=== PATIENT | female | born 2000 | race Caucasian/White ===

== ENCOUNTER 2019-10-17 17:08 | Emergency (ER) | payer MEDICAID ==
[~2019-10-17] VITALS: Ht 165.1 cm; Wt 52.2 kg
[2019-10-17] MEDS ORDERED: KEFLEX500 M1 PO (18:39)
[2019-10-17 19:39] VITALS: BP 124/70
== END 2019-10-17 19:41 | disposition home or self-care (01) ==
LOC: M.ERS 17:08
DX: S01.81XA Laceration without foreign body of other part of head, initial encounter (principal); Z91.040 Latex allergy status; W01.198A Fall on same level from slipping, tripping and stumbling with subsequent striking against other object, initial encounter; Y93.89 Activity, other specified; Y92.89 Other specified places as the place of occurrence of the external cause; Y99.9 Unspecified external cause status

== ENCOUNTER 2019-10-25 14:11 | Emergency (ER) | payer MEDICAID ==
[~2019-10-25] VITALS: Ht 165.1 cm; Wt 52.2 kg
[~2019-10-25 14:11] MED LIST: KEFLEX500 M1 PO
[2019-10-25 14:20] VITALS: BP 124/78
[2019-10-25] MEDS ORDERED: MEDERMA GEL20 GM TOP (14:36)
== END 2019-10-25 14:45 | disposition home or self-care (01) ==
LOC: M.ERS 14:11
DX: S01.81XD Laceration without foreign body of other part of head, subsequent encounter (principal); Z48.02 Encounter for removal of sutures; Z91.040 Latex allergy status; X58.XXXD Exposure to other specified factors, subsequent encounter